=== PATIENT | male | born 1995 | race Caucasian/White ===

== ENCOUNTER 2021-11-28 21:18 | Emergency (ER) | payer BC ==
[~2021-11-28] VITALS: Ht 185.4 cm; Wt 77.3 kg
[2021-11-28 21:32] VITALS: TEMP 97.9
[2021-11-28] MEDS ORDERED: NORCO 325 MG-51 TAB PO ×3 (22:39→22:41)
[2021-11-28 23:01] VITALS: BP 146/80; PULSE 61
== END 2021-11-28 23:01 | disposition home or self-care (01) ==
LOC: COL.ER 21:18
DX: S42.001A Fracture of unspecified part of right clavicle, initial encounter for closed fracture (principal); Z28.310 Unvaccinated for COVID-19; V86.56XA Driver of dirt bike or motor/cross bike injured in nontraffic accident, initial encounter; Y93.55 Activity, bike riding